=== PATIENT | male | born 1950 | race American Indian/Alaskan Native ===

== ENCOUNTER 2017-05-19 15:40 | Emergency (ER) | payer MEDICARE, OTHER ==
[2017-05-19] MEDS ORDERED: Sodium Chloride 0.9% 10 ML Syringe FLUSH PRN (15:45)
[2017-05-19 15:55] VITALS: BP 146/58
[2017-05-19 16:17] LABS: CHLORIDE,CL 99 mmol/L (101-111); SODIUM,NA 137 mmol/L (135-145)
--- NOTE | 2017-05-19 16:47 | EDM.PDOC ---
Scribed by Georgette Gonsales 05/19/17 [id number] for Rupert Caballero MD ED HPI GENERAL MEDICAL PROBLEM - General Chief Complaint: Neuro Symptoms/Deficits Stated Complaint: BY AMBULANCE Time Seen by Provider: 05/19/17 15:40 Source of Information: Reports: Patient, EMS, Family, Old Records, RN, RN Notes Reviewed History Limitations: Reports: No Limitations - History of Present Illness INITIAL COMMENTS - FREE TEXT/NARRATIVE: Patient arrives from home by ambulance with complaint of sudden onset of generalized weakness with lightheadedness while sitting in his recliner chair just after opening Stacey presents. Patient states he then fell asleep and was having a dream when his son woke him up. The son had called 911 because he didn't see what happened and thought his dad might have had a stroke. Patient states he has this type of thing happen often since he had a stroke 2 years ago. Onset: Today Duration: Resolved Prior to Arrival Severity: Moderate Improves with: Reports: None Worsens with: Reports: None Associated Symptoms: Reports: No Other Symptoms - Related Data Allergies Allergy/AdvReac Type Severity Reaction Status Date / Time No Known Allergies Allergy Verified 05/19/17 15:51 Home Meds: Home Meds Aspirin [Halfprin] 81 mg PO DAILY 07/02/14 [History] Hydrochlorothiazide/Lisinopril [Lisinopril/HCTZ 20-12.5 MG] 1 tab PO DAILY 07/02 [History] Clopidogrel Bisulfate [Clopidogrel] 75 mg PO DAILY 05/19/17 [History] amLODIPine [Norvasc] 10 mg PO DAILY 05/19/17 [History] atorvaSTATin [Lipitor] 40 mg PO DAILY 05/19/17 [History] Past Medical History HEENT History: Reports: Retinal Detachment Cardiovascular History: Reports: None Respiratory History: Reports: None Gastrointestinal History: Reports: None Genitourinary History: Reports: None Musculoskeletal History: Reports: None Neurological History: Reports: CVA Psychiatric History: Reports: None Endocrine/Metabolic History: Reports: None Hematologic History: Reports: None Immunologic History: Reports: None Oncologic (Cancer) History: Reports: None Dermatologic History: Reports: None - Past Surgical History HEENT Surgical History: Reports: Retinal Other HEENT Surgeries/Procedures: surgery about 10/10/15 Respiratory Surgical History: Reports: None Male Surgical History: Reports: None Social & Family History - Tobacco Use Smoking Status *Q: Former Smoker Years of Tobacco use: 40 Used Tobacco, but Quit: Yes Month Tobacco Last Used: 3 Second Hand Smoke Exposure: Yes - Alcohol Use Days Per Week of Alcohol Use: 4 Number of Drinks Per Day: 4 Total Drinks Per Week: 16 - Recreational Drug Use Recreational Drug Use: No - Living Situation & Occupation Living situation: Reports: Occupation: Other ED ROS GENERAL - Review of Systems Review Of Systems: ROS reveals no pertinent complaints other than HPI. ED EXAM, NEURO - Physical Exam Exam: See Below Exam Limited By: No Limitations General Appearance: Alert, WD/WN, No Apparent Distress Eye Exam: Bilateral Eye: Normal Inspection Ears: Normal External Exam, Normal Canal, Hearing Grossly Normal, Normal TMs Nose: Normal Inspection, Normal Mucosa, No Blood Throat/Mouth: Normal Inspection, Normal Lips, Normal Teeth, Normal Gums, Normal Oropharynx, Normal Voice, No Airway Compromise Head Exam: Atraumatic, Normocephalic Neck: Normal Inspection, Supple, Non-Tender, Full Range of Motion Respiratory/Chest: No Respiratory Distress, Lungs Clear, Normal Breath Sounds, No Accessory Muscle Use, Chest Non-Tender Cardiovascular: Normal Peripheral Pulses, Regular Rate, Rhythm, No Edema, No Gallop, No JVD, No Murmur, No Rub GI/Abdominal: Normal Bowel Sounds, Soft, Non-Tender, No Organomegaly, No Distention, No Abnormal Bruit, No Mass (Male) Exam: Deferred Rectal (Males) Exam: Deferred Neurological: Alert, Normal Mood/Affect, Normal Dorsiflexion, CN II-XII Intact, Normal Plantar Flexion, Normal Gait, Normal Reflexes, No Motor/Sensory Deficits , Oriented x 3 Back Exam: Normal Inspection, Full Range of Motion, NT Extremities: Normal Inspection, Normal Range of Motion, Non-Tender, No Pedal Edema, Normal Capillary Refill Psychiatric: Normal Affect, Normal Mood Skin Exam: Warm, Dry, Intact, Normal Color, No Rash EKG INTERPRETATION EKG Date: 05/19/17 Time: 15:43 Rhythm: Other (sinus rhythm) Rate (Beats/Min): 62 [place]: Normal P-Wave: Present QRS: LBBB (incomplete) ST-T: Normal QT: Normal Course - Vital Signs Last Recorded V/S: Last Vital Signs Temp 35.7 C 05/19/17 15:57 Pulse 70 05/19/17 15:57 Resp 20 05/19/17 15:57 BP 146/58 H 05/19/17 15:57 Pulse Ox 98 05/19/17 15:57 - Orders/Labs/Meds Orders: Active Orders 24 hr Category Date Time Status Blood Glucose Check, Bedside [RC] ONETIME Care 05/19/17 15:46 Active EKG 12 Lead [EKG Documentation Completion] [RC] STAT Care 05/19/17 15:45 Active Peripheral IV Care [RC] . DIRECTED Care 05/19/17 15:46 Active Chest 1V Frontal [CR] Stat Exams 05/19/17 15:45 Taken Head wo Cont [CT] Stat Exams 05/19/17 15:43 Taken DRUG SCREEN URINE BIORAD [URCHEM] Stat Lab 05/19/17 15:46 Uncollected UA W/MICROSCOPIC [URIN] Stat Lab 05/19/17 15:46 Uncollected Sodium Chloride 0.9% [Saline Flush] Med 05/19/17 15:45 Active 10 ml FLUSH ASDIRECTED PRN Peripheral IV Insertion Adult [OM.PC] Stat Oth 05/19/17 15:45 Ordered Medication Orders Sodium Chloride (Saline Flush) 10 ml FLUSH ASDIRECTED PRN PRN Reason: Keep Vein Open Last Admin: 05/19/17 15:51 Dose: 10 ml Labs: Laboratory Tests 05/19/17 05/19/17 05/19/17 Range/Units 15:51 15:51 15:51 WBC 9.2 (5.0-10.0) 10^3/uL RBC 4.31 L (4.6-6.2) 10^6/uL Hgb 13.0 L (14.0-18.0) g/dL Hct 38.5 L (40.0-54.0) % MCV 89.3 (80-100) fL MCH 30.2 (27.0-34.0) pg MCHC 33.8 (33.0-35.0) g/dL Plt Count 247 (150-450) 10^3/uL Neut % (Auto) 37.4 L (42.2-75.2) % Lymph % (Auto) 51.6 H (20.5-50.1) % Pope % (Auto) 7.2 (2-8) % Eos % (Auto) 3.4 H (1.0-3.0) % Baso % (Auto) 0.4 (0.0-1.0) % PT 10.1 (9.0-12.0) SEC INR 1.0 (0.9-1.2) APTT 21.0 L (22.0-34.0) SEC Sodium 137 (135-145) mmol/L Potassium 3.1 L (3.6-5.0) mmol/L Chloride 99 L (101-111) mmol/L Carbon Dioxide 25.0 (21.0-31.0) mmol/L Anion Gap 16.1 BUN 20 H (7-18) mg/dL Creatinine 1.0 (0.6-1.3) mg/dL Est Cr Clr Drug Dosing 77.39 mL/min Estimated GFR (MDRD) > 60 BUN/Creatinine Ratio 20.00 Glucose 171 H (74-105) mg/dL POC Glucose (70-105) mg/dl Calcium 9.5 (8.4-10.2) mg/dl Total Bilirubin 0.6 (0.2-1.0) mg/dL AST 28 (10-42) IU/L ALT 25 (10-60) IU/L Alkaline Phosphatase 47 (42-121) IU/L Troponin I < 0.02 (0.00-0.02) ng/ml Total Protein 7.2 (6.7-8.2) g/dl Albumin 4.1 (3.2-5.5) g/dl Globulin 3.1 Albumin/Globulin Ratio 1.32 Ethyl Alcohol < 5 mg/dL //17 Range/Units 16:17 WBC (5.0-10.0) 10^3/uL RBC (4.6-6.2) 10^6/uL Hgb (14.0-18.0) g/dL Hct (40.0-54.0) % MCV (80-100) fL MCH (27.0-34.0) pg MCHC (33.0-35.0) g/dL Plt Count (150-450) 10^3/uL Neut % (Auto) (42.2-75.2) % Lymph % (Auto) (20.5-50.1) % Pope % (Auto) (2-8) % Eos % (Auto) (1.0-3.0) % Baso % (Auto) (0.0-1.0) % PT (9.0-12.0) SEC INR (0.9-1.2) APTT (22.0-34.0) SEC Sodium (135-145) mmol/L Potassium (3.6-5.0) mmol/L Chloride (101-111) mmol/L Carbon Dioxide (21.0-31.0) mmol/L Anion Gap BUN (7-18) mg/dL Creatinine (0.6-1.3) mg/dL Est Cr Clr Drug Dosing mL/min Estimated GFR (MDRD) BUN/Creatinine Ratio Glucose (74-105) mg/dL POC Glucose 152 H (70-105) mg/dl Calcium (8.4-10.2) mg/dl Total Bilirubin (0.2-1.0) mg/dL AST (10-42) IU/L ALT (10-60) IU/L Alkaline Phosphatase (42-121) IU/L Troponin I (0.00-0.02) ng/ml Total Protein (6.7-8.2) g/dl Albumin (3.2-5.5) g/dl Globulin Albumin/Globulin Ratio Ethyl Alcohol mg/dL Meds: Medications Generic Name Dose Route Start Last Admin Trade Name Freq PRN Reason Stop Dose Admin Sodium Chloride 10 ml 05/19/17 15:45 05/19/17 15:51 Saline Flush FLUSH 10 ml ASDIRECTED PRN Administration Keep Vein Open - Radiology Interpretation Free Text/Narrative:: CT head: No acute intracranial process. See rad report. Chest x-ray:No active disease of the chest. See rad report. Departure - Departure Time of Disposition: 16:31 Disposition: Home, Self-Care 01 Condition: Good Clinical Impression: Normal exam - Discharge Information Instructions: Medical Screening Exam Forms: ED Department Discharge Additional Instructions: Follow up in clinic for recheck in the next 1 week. Return to ER if any new symptoms develops or if worse at anytime. - My Orders Last 24 Hours: My Active Orders 05/19/17 15:43 Head wo Cont [CT] Stat 05/19/17 15:45 EKG 12 Lead [EKG Documentation Completion] [RC] STAT Chest 1V Frontal [CR] Stat Sodium Chloride 0.9% [Saline Flush] 10 ml FLUSH ASDIRECTED PRN Peripheral IV Insertion Adult [OM.PC] Stat 05/19/17 15:46 Blood Glucose Check, Bedside [RC] ONETIME Peripheral IV Care [RC] . DIRECTED DRUG SCREEN URINE BIORAD [URCHEM] Stat UA W/MICROSCOPIC [URIN] Stat - Assessment/Plan Last 24 Hours: My Active Orders 05/19/17 15:43 Head wo Cont [CT] Stat 05/19/17 15:45 EKG 12 Lead [EKG Documentation Completion] [RC] STAT Chest 1V Frontal [CR] Stat Sodium Chloride 0.9% [Saline Flush] 10 ml FLUSH ASDIRECTED PRN Peripheral IV Insertion Adult [OM.PC] Stat 05/19/17 15:46 Blood Glucose Check, Bedside [RC] ONETIME Peripheral IV Care [RC] . DIRECTED DRUG SCREEN URINE BIORAD [URCHEM] Stat UA W/MICROSCOPIC [URIN] Stat I have read and agree with the documentation that has been completed regarding this visit. By signing this record, I attest that the documentation was completed in my physical presence and is an accurate record of the encounter.
--- NOTE | 2017-05-26 18:31 | EKG ---
05/19/2017 - NIA JIMENEZ - This 12-lead EKG shows a normal sinus rhythm with a ventricular rate of 62. There is an incomplete left bundle-branch block. No other comments are made. [facility] /[id number] MTDD
== END 2017-05-19 16:20 | disposition home or self-care (01) ==
LOC: DL.ED 15:40
DX: R53.1 Weakness (principal); R42 Dizziness and giddiness; Z79.82 Long term (current) use of aspirin; Z79.899 Other long term (current) drug therapy; Z87.891 Personal history of nicotine dependence; Z86.73 Personal history of transient ischemic attack (TIA), and cerebral infarction without residual deficits
CPT/HCPCS: 36415; 70450; 71010; 80053; 82962; 84484; 85025; 85610; 85730; 93005; 93010; 99285; G0480; J7050; 99283

== ENCOUNTER 2017-09-22 05:56 | Day surgery (SDC) | payer MEDICARE, OTHER ==
[2017-09-22] MEDS ORDERED: fentaNYL 100 MCG/2 ML SDV IV ONE ×3 (05:57→07:02)
[2017-09-22] MEDS ORDERED: Midazolam 1 MG/ML 2 ML SDV IV ONE ×3 (05:57→07:03)
[2017-09-22] MEDS ORDERED: Sodium Chloride 0.9% 10 ML Syringe FLUSH PRN (06:00)
[2017-09-22] MEDS ORDERED: Dextrose 5%-0.45% NaCl 1,000 ML IV SCH (06:00)
[2017-09-22] MEDS ORDERED: Midazolam 1 MG/ML 2 ML SDV ONE (06:14)
[2017-09-22] MEDS ORDERED: fentaNYL 100 MCG/2 ML SDV ONE (06:15)
[2017-09-22 09:16] VITALS: BP 112/58
--- NOTE | 2017-09-22 13:44 | OR ---
DATE: 09/22/2017 PROCEDURE: Esophagogastroduodenoscopy, NBI and magnification views, and multiple pinch biopsies. INSTRUMENT USED: GIF-H180 Olympus video panendoscope. PREMEDICATIONS: No oral topical anesthesia used. Fentanyl 100 mcg intravenous, Versed 2 mg intravenous. The procedure was done under pulse oximetry, BP recording, and monitoring coordinator. INDICATION: The patient with abdominal pain, and FIT positive stools. Esophagogastroduodenoscopy is performed for detection of any active erosive lesions, malignancy also under consideration, H. pylori status to be determined, endoscopic hemostasis therapy if needed. DESCRIPTION OF PROCEDURE: The scope was passed with ease. Adequate visualization of the esophagus was made from proximal to distal areas. No upper esophageal lesions identified. No distal esophageal stricture. No uphill or downhill esophageal varices. No Deloris-Rodriguez tear. No evidence of erosive esophagitis by [place] criteria. No esophageal polyp or tumor mass identified. Z-line was seen at around 40 cm distal to the oral verge, configuration consistent with Grade 1 by ZAP classification. No proximal gastric varices noted. Gastric fundus examination by retroflex ion showed no polypoid lesions. No gastric ulcer, malignant mass, or vascular ectasia identified. Scattered gastric antral erosions were noted without bleeding from them. Duodenal bulb showed no ulcer. Visualized second part of the duodenum, showed prominent sessile benign-appearing folds and also close by 5-mm sized submucosal prominent fold. NBI views and magnification views were obtained, photographs were taken, multiple pinch biopsies were obtained and sent for histopathology. Multiple pinch biopsies were also taken from the gastric antrum and proximal body and sent for PyloriTek test for H. pylori and histopathology. No bleeding was noted from any of the visualized areas at the completion of examination. Photographs were taken of the second part of the duodenum, duodenal bulb, gastric antrum, fundus, and distal esophagus. IMPRESSION: Gastric antral erosions. The patient tolerated the procedure well. [facility] /[id number]
== END 2017-09-22 09:20 | disposition home or self-care (01) ==
LOC: DL.ENDO 05:56
PROVIDERS: ATTEND Internal Medicine Gastroenterology
DX: D13.2 Benign neoplasm of duodenum (principal); K25.9 Gastric ulcer, unspecified as acute or chronic, without hemorrhage or perforation; K29.80 Duodenitis without bleeding; K31.89 Other diseases of stomach and duodenum; I10 Essential (primary) hypertension; E78.5 Hyperlipidemia, unspecified; Z79.82 Long term (current) use of aspirin
CPT/HCPCS: 43239; 87077; 88305; J2250; J3010; J7042

== ENCOUNTER 2017-09-24 05:23 | Day surgery (SDC) | payer MEDICARE, OTHER ==
[2017-09-24] MEDS ORDERED: Midazolam 1 MG/ML 2 ML SDV IV ONE ×8 (05:24→06:57)
[2017-09-24] MEDS ORDERED: fentaNYL 100 MCG/2 ML SDV IV ONE ×4 (05:24→06:37)
[2017-09-24] MEDS ORDERED: Dextrose 5%-0.45% NaCl 1,000 ML IV SCH (06:00)
[2017-09-24] MEDS ORDERED: Midazolam 1 MG/ML 2 ML SDV ONE (06:15)
[2017-09-24] MEDS ORDERED: fentaNYL 100 MCG/2 ML SDV ONE (06:15)
--- NOTE | 2017-09-24 09:30 | OR ---
DATE: 09/24/2017 PROCEDURES: Total colonoscopy, narrow-band imaging, and multiple snare polypectomies. INSTRUMENT USED: CF-H180 [place] Olympus video colonoscope. PREMEDICATIONS: Fentanyl 100 mcg intravenous, Versed 4 mg intravenous. Nasal O2 cannula. The procedure was done under pulse oximetry, BP recording, and radiographer cardiac catheterization. INDICATION: The patient with FIT positive stools. Colonoscopic examination is done for detection of any polypoid lesions and removal, endoscopic hemostasis therapy if needed. DESCRIPTION OF PROCEDURE: Initial rectal exam was unremarkable. Rigid anoscopy was normal. The colonoscope was passed with ease. In the mid rectum, 5-mm sized benign- appearing polyp was noted. Photograph was taken. Cold snare polypectomy was done. The tissue was retrieved and sent for histopathology. In the distal descending colon, another 1-cm sized pedunculated polyp was noted. NBI views were obtained. Photographs were taken. Snare polypectomy was done. The polyp was retrieved and sent for histopathology. Polypectomy side was felt to be cleaned. In the distal descending colon, another three polyps, 3 to 5 mm sized, noted. Cold snare polypectomy was done. The tissues were retrieved and sent for histopathology. A few scattered diverticula were noted in the distal left colon. The scope was passed with ease up to the ileocecal area. Photographs were taken of the normal-appearing cecum identified by double-bulged ileocecal folds. No bleeding was noted from any of the visualized areas at the commencement of the examination. No stricture. No vascular ectasia. No large isolated ulcerations seen. No evidence of diffuse inflammatory bowel disease in the form of friability, contact bleeding, or ulcerations. Probing the proximal sides of folds and flexures, using adequate distention and clearing up the stool material, withdrawal of the scope was made. [id number] time over 6 minutes. No bleeding was noted from any of the visualized areas at the completion of examination. IMPRESSION: 1. Diverticulosis. 2. Multiple colonic polyps. The patient tolerated the procedure well. [facility] /[id number]
[2017-09-24 10:03] VITALS: BP 115/59
== END 2017-09-24 09:17 | disposition home or self-care (01) ==
LOC: DL.ENDO 05:23
PROVIDERS: ATTEND Internal Medicine Gastroenterology
DX: D12.4 Benign neoplasm of descending colon (principal); D12.8 Benign neoplasm of rectum; K57.30 Diverticulosis of large intestine without perforation or abscess without bleeding; E78.5 Hyperlipidemia, unspecified; I10 Essential (primary) hypertension; Z79.82 Long term (current) use of aspirin; Z90.89 Acquired absence of other organs; Z98.52 Vasectomy status; Z98.890 Other specified postprocedural states
CPT/HCPCS: 45385; J2250; J3010; J7042; 88305

== ENCOUNTER 2018-06-17 23:28 | Emergency (ER) | payer MEDICARE, OTHER ==
[2018-06-17] MEDS ORDERED: Sodium Chloride 0.9% 10 ML Syringe FLUSH PRN (23:40)
[2018-06-17] MEDS ORDERED: Pantoprazole 40 MG Vial IVPUSH ONE (23:41)
[2018-06-17] MEDS ORDERED: Pantoprazole 40 MG in Sodium Chloride 0.9% 100 ML IV SCH (23:43)
[2018-06-17] MEDS ORDERED: Lactated Ringers 1,000 ML IV ONE (23:48)
--- NOTE | 2018-06-17 23:55 | EDM.PDOC ---
ED HPI GENERAL MEDICAL PROBLEM - General Chief Complaint: Gastrointestinal Problem Stated Complaint: AMBULANCE-BLEEDING FROM GI TUBE? Time Seen by Provider: 06/17/18 23:28 Source of Information: Reports: Patient, EMS, EMS Notes Reviewed, RN, RN Notes Reviewed History Limitations: Reports: No Limitations - History of Present Illness INITIAL COMMENTS - FREE TEXT/NARRATIVE: Pt to ER per [facility] with c/o black bloody stools. He states he was at [place] last week and had an endoscopy and colonoscopy. He states he had a polyp removed from the duodenum on Friday06/12/18. He came home Friday06/13/18. He states he has had some black and bloody stools on and off since the procedure, but they began getting more firm and brown. Yesterday began again with the black stools having about 3 per day. He states today he had a very large bloody stool and has been very weak and dizzy. Patient denies any vomiting or stomach pain. Onset: Gradual Onset Date: 06/12/18 - Related Data Allergies Allergy/AdvReac Type Severity Reaction Status Date / Time No Known Allergies Allergy Verified 06/17/18 23:39 Home Meds: Home Meds Aspirin [Halfprin] 81 mg PO DAILY 07/02/14 [History] Clopidogrel Bisulfate [Clopidogrel] 75 mg PO DAILY 05/19/17 [History] amLODIPine [Norvasc] 10 mg PO DAILY 05/19/17 [History] atorvaSTATin [Lipitor] 40 mg PO DAILY 05/19/17 [History] Hoyt-3 Fatty Acids/Fish Oil [Cvs Fish Oil 1,000 mg Softgel] 2,000 mg PO DAILY 09/17/17 [History] Eye Promise 1 tab PO DAILY 09/18/17 [History] Lisinopril/Hydrochlorothiazide [Lisinopril-Hctz 20-12.5 mg Tab] 1 tab PO BID [History] Pantoprazole Sodium [Protonix] 40 mg PO DAILY 04/08/18 [History] Past Medical History HEENT History: Reports: Retinal Detachment Other HEENT History: LEFT EYE RETINAL DETACHEMENT x2 Cardiovascular History: Reports: High Cholesterol, Hypertension, Other (See Below) Other Cardiovascular History: CAROTID STENOSIS, RIGHT Respiratory History: Reports: None Gastrointestinal History: Reports: GERD Genitourinary History: Reports: None Musculoskeletal History: Reports: Fracture Other Musculoskeletal History: Left Foot crushed on railroad Neurological History: Reports: CVA Psychiatric History: Reports: None Endocrine/Metabolic History: Reports: None Hematologic History: Reports: None Immunologic History: Reports: None Oncologic (Cancer) History: Reports: None Dermatologic History: Reports: None - Infectious Disease History Infectious Disease History: Reports: Measles - Past Surgical History Head Surgeries/Procedures: Reports: None HEENT Surgical History: Reports: Detached Retina, Tonsillectomy Other HEENT Surgeries/Procedures: LEFT EYE Cardiovascular Surgical History: Reports: Carotid Endarterectomy Other Cardiovascular Surgeries/Procedures: RIGHT CAROTID ENDARTERECTOMY Respiratory Surgical History: Reports: None GI Surgical History: Reports: Colonoscopy, Hernia Repair/Other Male Surgical History: Reports: Vasectomy Endocrine Surgical History: Reports: None Neurological Surgical History: Reports: None Musculoskeletal Surgical History: Reports: None Oncologic Surgical History: Reports: None Dermatological Surgical History: Reports: None Social & Family History - Family History Family Medical History: Noncontributory - Tobacco Use Smoking Status *Q: Former Smoker Used Tobacco, but Quit: Yes Month/Year Tobacco Last Used: 2012 - Caffeine Use Caffeine Use: Reports: Coffee Caffeine Use Comment: 1/2 pot daily - Recreational Drug Use Recreational Drug Use: No - Living Situation & Occupation Living situation: Reports: Occupation: Other ED ROS GENERAL - Review of Systems Review Of Systems: ROS reveals no pertinent complaints other than HPI. ED EXAM, GI/ABD - Physical Exam Exam: See Below Exam Limited By: No Limitations General Appearance: Alert, WD/WN, No Apparent Distress Eyes: Bilateral: Normal Appearance, EOMI Ears: Normal External Exam, Hearing Grossly Normal Nose: Normal Inspection Throat/Mouth: Normal Inspection, Normal Voice, No Airway Compromise Head: Atraumatic, Normocephalic Neck: Normal Inspection, Supple, Non-Tender, Full Range of Motion Respiratory/Chest: No Respiratory Distress, Lungs Clear, Normal Breath Sounds, No Accessory Muscle Use, Chest Non-Tender Cardiovascular: Normal Peripheral Pulses, Regular Rate, Rhythm, No Edema, No Gallop, No JVD, No Murmur, No Rub GI/Abdominal Exam: Normal Bowel Sounds, Soft, Non-Tender, No Organomegaly, No Abnormal Bruit, No Mass, Pelvis Stable, Distended (Male) Exam: Deferred Rectal (Males) Exam: Black Stool, Bloody Stool, Heme + Stool Back Exam: Normal Inspection, Full Range of Motion, NT Extremities: Normal Inspection, Normal Range of Motion, Non-Tender, Normal Capillary Refill, No Pedal Edema Neurological: Alert, Oriented, CN II-XII Intact, Normal Cognition, Normal Gait, Normal Reflexes, No Motor/Sensory Deficits Psychiatric: Normal Affect, Normal Mood Skin Exam: Warm, Dry, Intact, No Rash, Pallor Lymphatic: No Adenopathy EKG INTERPRETATION EKG Date: 06/17/18 Time: 23:46 Rhythm: NSR Rate (Beats/Min): 79 [place]: Normal P-Wave: Present QRS: Normal ST-T: Normal QT: Normal Comparison: No Change Course - Vital Signs Last Recorded V/S: Last Vital Signs Temp 98.2 F 06/18/18 01:17 Pulse 88 06/18/18 01:17 Resp 18 06/18/18 01:17 BP 100/51 L 06/18/18 01:17 Pulse Ox 93 L 06/17/18 23:28 - Orders/Labs/Meds Orders: Active Orders 24 hr Category Date Time Status EKG Documentation Completion [RC] STAT Care 06/17/18 23:38 Active Peripheral IV Care [RC] . DIRECTED Care 06/17/18 23:40 Active FRESH FROZEN PLASMA [BBK] Stat Lab 06/18/18 02:36 Results RED BLOOD CELLS LP [BBK] Stat Lab 06/17/18 23:35 Results TYPE AND SCREEN [BBK] Stat Lab 06/17/18 23:35 Results Peripheral IV Insertion Adult [OM.PC] Stat Oth 06/17/18 23:37 Ordered Transfuse RBC [Transfuse Red Blood Cells] [COMM] Stat Oth 06/17/18 23:40 Ordered Labs: Laboratory Tests 06/17/18 06/17/18 06/17/18 Range/Units 23:35 23:35 23:35 WBC 14.6 H (5.0-10.0) 10^3/uL RBC 1.82 L (4.6-6.2) 10^6/uL Hgb 5.5 L* D (14.0-18.0) g/dL Hct 17.0 L* (40.0-54.0) % MCV 93.4 D (80-100) fL MCH 30.2 (27.0-34.0) pg MCHC 32.4 L (33.0-35.0) g/dL Plt Count 219 (150-450) 10^3/uL Neut % (Auto) 65.7 (42.2-75.2) % Lymph % (Auto) 26.7 (20.5-50.1) % [place] % (Auto) 6.1 (2-8) % Eos % (Auto) 1.2 (1.0-3.0) % Baso % (Auto) 0.3 (0.0-1.0) % Add Manual Diff Yes Neutrophils % (Manual) 79 H (42-75) % Lymphocytes % (Manual) 15 L (20-50) % Monocytes % (Manual) 5 (2-8) % Eosinophils % (Manual) 1 (1-3) % PT 10.2 (9.0-12.0) SEC INR 1.0 (0.9-1.2) Sodium 132 L (135-145) mmol/L Potassium 3.3 L (3.6-5.0) mmol/L Chloride 96 L (101-111) mmol/L Carbon Dioxide 19.0 L (21.0-31.0) mmol/L Anion Gap 20.3 BUN 34 H (7-18) mg/dL Creatinine 1.2 (0.6-1.3) mg/dL Est Cr Clr Drug Dosing 63.62 mL/min Estimated GFR (MDRD) > 60 BUN/Creatinine Ratio 28.33 Glucose 206 H (74-105) mg/dL Calcium 7.8 L D (8.4-10.2) mg/dl Total Bilirubin 0.4 (0.2-1.0) mg/dL AST 26 (10-42) IU/L ALT 19 (10-60) IU/L Alkaline Phosphatase 35 L (42-121) IU/L Total Protein 5.2 L (6.7-8.2) g/dl Albumin 2.9 L (3.2-5.5) g/dl Globulin 2.3 Albumin/Globulin Ratio 1.26 Blood Type Gel Antibody Screen Crossmatch 06/17/18 06/18/18 06/18/18 Range/Units 23:35 03:33 03:33 WBC (5.0-10.0) 10^3/uL RBC (4.6-6.2) 10^6/uL Hgb 8.3 L D (14.0-18.0) g/dL Hct 24.4 L (40.0-54.0) % MCV (80-100) fL MCH (27.0-34.0) pg MCHC (33.0-35.0) g/dL Plt Count (150-450) 10^3/uL Neut % (Auto) (42.2-75.2) % Lymph % (Auto) (20.5-50.1) % [place] % (Auto) (2-8) % Eos % (Auto) (1.0-3.0) % Baso % (Auto) (0.0-1.0) % Add Manual Diff Neutrophils % (Manual) (42-75) % Lymphocytes % (Manual) (20-50) % Monocytes % (Manual) (2-8) % Eosinophils % (Manual) (1-3) % PT (9.0-12.0) SEC INR (0.9-1.2) Sodium (135-145) mmol/L Potassium (3.6-5.0) mmol/L Chloride (101-111) mmol/L Carbon Dioxide (21.0-31.0) mmol/L Anion Gap BUN (7-18) mg/dL Creatinine (0.6-1.3) mg/dL Est Cr Clr Drug Dosing mL/min Estimated GFR (MDRD) BUN/Creatinine Ratio Glucose (74-105) mg/dL Calcium 7.5 L (8.4-10.2) mg/dl Total Bilirubin (0.2-1.0) mg/dL AST (10-42) IU/L ALT (10-60) IU/L Alkaline Phosphatase (42-121) IU/L Total Protein (6.7-8.2) g/dl Albumin (3.2-5.5) g/dl Globulin Albumin/Globulin Ratio Blood Type A POSITIVE Gel Antibody Screen Negative Crossmatch See Detail Meds: Medications Discontinued Medications Generic Name Dose Route Start Last Admin Trade Name Freq PRN Reason Stop Dose Admin Calcium Gluconate 1 gm 06/18/18 03:14 06/18/18 03:19 Calcium Gluconate IVPUSH 06/18/18 03:15 1 gm ONETIME ONE Administration Pantoprazole Sodium 40 mg/ 100 mls @ 20 mls/hr 06/17/18 23:43 06/18/18 00:11 Sodium Chloride IV 20 mls/hr .CONTINUOS MARCO Administration Lactated Ringer's 1,000 mls @ 999 mls/hr 06/17/18 23:48 06/17/18 23:54 Ringers, Lactated IV 06/18/18 00:48 999 mls/hr .BOLUS ONE Administration Sodium Chloride 1,000 mls @ 999 mls/hr 06/18/18 00:23 06/18/18 00:25 Normal Saline IV 06/18/18 01:23 999 mls/hr .BOLUS ONE Administration Sodium Chloride 1,000 mls @ 999 mls/hr 06/18/18 02:21 06/18/18 02:22 Normal Saline IV 06/18/18 03:21 999 mls/hr .BOLUS ONE Administration Pantoprazole Sodium 40 mg/ 100 mls @ 20 mls/hr 06/18/18 03:00 06/18/18 02:57 Sodium Chloride IV 20 mls/hr .CONTINUOS MARCO Administration Lactated Ringer's 1,000 mls @ 999 mls/hr 06/18/18 02:48 06/18/18 02:53 Ringers, Lactated IV 06/18/18 03:48 999 mls/hr .BOLUS ONE Administration Pantoprazole Sodium 80 mg 06/17/18 23:41 06/17/18 23:51 Protonix Iv IVPUSH 06/17/18 23:42 80 mg .BOLUS ONE Administration Sodium Chloride 10 ml 06/17/18 23:40 06/18/18 00:12 Saline Flush FLUSH 10 ml ASDIRECTED PRN Administration Keep Vein Open - Re-Assessments/Exams Free Text/Narrative Re-Assessment/Exam: 06/18/18 04:26 Discussed patient case with Dr. Bal who agreed to accept the patient for transfer. Departure - Departure Time of Disposition: 03:50 Disposition: DC/Tfer to Acute Hospital 02 Condition: Poor Clinical Impression: GI bleed Qualifiers: GI bleed type/associated pathology: melena Qualified Code(s): K92.1 - Melena - Discharge Information *PRESCRIPTION DRUG MONITORING PROGRAM REVIEWED*: No *COPY OF PRESCRIPTION DRUG MONITORING REPORT IN PATIENT SEBASTIAN: No Referrals: Isra Han MD [Primary Care Provider] - Forms: ED Department Discharge, Interfacility Transfer EMTALA - My Orders Last 24 Hours: My Active Orders 06/17/18 23:35 RED BLOOD CELLS LP [BBK] Stat TYPE AND SCREEN [BBK] Stat 06/17/18 23:37 Peripheral IV Insertion Adult [OM.PC] Stat 06/17/18 23:38 EKG Documentation Completion [RC] STAT 06/17/18 23:40 Peripheral IV Care [RC] . DIRECTED Transfuse RBC [Transfuse Red Blood Cells] [COMM] Stat 06/18/18 02:36 FRESH FROZEN PLASMA [BBK] Stat - Assessment/Plan Last 24 Hours: My Active Orders 06/17/18 23:35 RED BLOOD CELLS LP [BBK] Stat TYPE AND SCREEN [BBK] Stat 06/17/18 23:37 Peripheral IV Insertion Adult [OM.PC] Stat 06/17/18 23:38 EKG Documentation Completion [RC] STAT 06/17/18 23:40 Peripheral IV Care [RC] . DIRECTED Transfuse RBC [Transfuse Red Blood Cells] [COMM] Stat 06/18/18 02:36 FRESH FROZEN PLASMA [BBK] Stat
[2018-06-18 00:02] LABS: ANION GAP 20.3; CHLORIDE,CL 96 mmol/L (101-111); SODIUM,NA 132 mmol/L (135-145)
[2018-06-18] MEDS ORDERED: Sodium Chloride 0.9% 1,000 ML IV ONE ×2 (00:23→02:21)
[2018-06-18 01:18] VITALS: BP 100/51
[2018-06-18] MEDS ORDERED: Lactated Ringers 1,000 ML IV ONE (02:48)
[2018-06-18] MEDS ORDERED: Pantoprazole 40 MG in Sodium Chloride 0.9% 100 ML IV SCH (03:00)
[2018-06-18] MEDS ORDERED: Calcium Gluconate 10% 1 GM/10 ML SDV IVPUSH ONE (03:14)
== END 2018-06-18 03:50 ==
LOC: DL.ED 23:28
DX: K92.1 Melena (principal); E78.00 Pure hypercholesterolemia, unspecified; Z86.73 Personal history of transient ischemic attack (TIA), and cerebral infarction without residual deficits; Z87.891 Personal history of nicotine dependence; Z79.82 Long term (current) use of aspirin; Z79.899 Other long term (current) drug therapy
CPT/HCPCS: 36415; 36430; 80053; 82272; 82310; 85014; 85018; 85025; 85610; 86850; 86900; 86901; 86920; 86922; 93005; 96361; 96365; 96366; 96375; 99285; C9113; J0610; J7030; J7050; J7120; P9016

== ENCOUNTER 2018-06-24 10:33 | Emergency (ER) | payer MEDICARE, OTHER ==
[2018-06-24 10:41] VITALS: BP 107/56
--- NOTE | 2018-06-24 11:02 | EDM.PDOC ---
ED HPI GENERAL MEDICAL PROBLEM - General Stated Complaint: PASSED OUT Time Seen by Provider: 06/24/18 10:40 Source of Information: Reports: Patient, Provider History Limitations: Reports: No Limitations - History of Present Illness INITIAL COMMENTS - FREE TEXT/NARRATIVE: This 68 yo male patient was sent to the ED from Dr. Dodge's office due to the patient passing out while getting a follow-up examination in her office. Dr. Dodge reports she could not detect a blood pressure. The patient was in [facility] 1 week ago for bleeding in his Duodenum (cauderized). Upon arrival in the ED, the patient reports he s feeling fine at this time. The patient reports that all of this happened while he was taking deep breaths while being assessed by Dr. Dodge. The patient denies any current chest pain or dizziness. The patient reports that he had some changes in his vision yesterday (the patient describes it as he was seeing little lines in both eyes) . The patient reports he symptoms went away when he elevated his feet. The patient reports some vision changes at this time. The patient reports his hemoglobin was 7.6 when he was discharged last week. Onset: Today, Sudden Duration: Resolved Prior to Arrival Location: Reports: Generalized Quality: Reports: Other Severity: Moderate Improves with: Reports: None Worsens with: Reports: None Context: Reports: Other Associated Symptoms: Reports: Syncope - Related Data Allergies Allergy/AdvReac Type Severity Reaction Status Date / Time No Known Allergies Allergy Verified 06/24/18 10:52 Home Meds: Home Meds Clopidogrel Bisulfate [Clopidogrel] 75 mg PO DAILY 05/19/17 [History] amLODIPine [Norvasc] 10 mg PO DAILY 05/19/17 [History] atorvaSTATin [Lipitor] 40 mg PO BEDTIME 05/19/17 [History] Eye Promise 1 tab PO DAILY 09/18/17 [History] Lisinopril/Hydrochlorothiazide [Lisinopril-Hctz 20-12.5 mg Tab] 1 tab PO BID [History] Pantoprazole Sodium [Protonix] 40 mg PO BID 04/08/18 [History] Sildenafil Citrate [Sildenafil] 50 mg PO DAILY PRN 06/24/18 [History] Past Medical History HEENT History: Reports: Retinal Detachment Other HEENT History: LEFT EYE RETINAL DETACHEMENT x2 Cardiovascular History: Reports: High Cholesterol, Hypertension, Other (See Below) Other Cardiovascular History: CAROTID STENOSIS, RIGHT Respiratory History: Reports: None Gastrointestinal History: Reports: GERD Genitourinary History: Reports: None Musculoskeletal History: Reports: Fracture Other Musculoskeletal History: Left Foot crushed on railroad Neurological History: Reports: CVA Psychiatric History: Reports: None Endocrine/Metabolic History: Reports: None Hematologic History: Reports: None Immunologic History: Reports: None Oncologic (Cancer) History: Reports: None Dermatologic History: Reports: None - Infectious Disease History Infectious Disease History: Reports: Measles - Past Surgical History Head Surgeries/Procedures: Reports: None HEENT Surgical History: Reports: Detached Retina, Tonsillectomy Other HEENT Surgeries/Procedures: LEFT EYE Cardiovascular Surgical History: Reports: Carotid Endarterectomy Other Cardiovascular Surgeries/Procedures: RIGHT CAROTID ENDARTERECTOMY Respiratory Surgical History: Reports: None GI Surgical History: Reports: Colonoscopy, Hernia Repair/Other Male Surgical History: Reports: Vasectomy Endocrine Surgical History: Reports: None Neurological Surgical History: Reports: None Musculoskeletal Surgical History: Reports: None Oncologic Surgical History: Reports: None Dermatological Surgical History: Reports: None Social & Family History - Family History Family Medical History: Noncontributory - Caffeine Use Caffeine Use: Reports: Coffee Caffeine Use Comment: 1/2 pot daily - Living Situation & Occupation Living situation: Reports: Occupation: Other ED ROS GENERAL - Review of Systems Review Of Systems: ROS reveals no pertinent complaints other than HPI. ED EXAM, GENERAL - Physical Exam Exam: See Below Exam Limited By: No Limitations General Appearance: Alert, WD/WN, No Apparent Distress Eye Exam: Bilateral Eye: EOMI, Normal Inspection, PERRL Ears: Normal External Exam, Normal Canal, Hearing Grossly Normal, Normal TMs Nose: Normal Inspection, Normal Mucosa, No Blood Throat/Mouth: Normal Inspection, Normal Lips, Normal Teeth, Normal Gums, Normal Oropharynx, Normal Voice, No Airway Compromise Head: Atraumatic, Normocephalic Neck: Normal Inspection, Supple, Non-Tender, Full Range of Motion Respiratory/Chest: No Respiratory Distress, Lungs Clear, Normal Breath Sounds, No Accessory Muscle Use, Chest Non-Tender Cardiovascular: Normal Peripheral Pulses, Regular Rate, Rhythm, No Edema, No Gallop, No JVD, No Murmur, No Rub GI/Abdominal: Normal Bowel Sounds, Soft, Non-Tender, No Organomegaly, No Distention, No Abnormal Bruit, No Mass (Male) Exam: Deferred Rectal (Males) Exam: Deferred Back Exam: Normal Inspection, Full Range of Motion, NT Extremities: Normal Inspection, Normal Range of Motion, Non-Tender, Normal Capillary Refill, No Pedal Edema Neurological: Alert, Oriented, CN II-XII Intact, Normal Cognition, Normal Gait, Normal Reflexes, No Motor/Sensory Deficits Psychiatric: Normal Affect, Normal Mood Skin Exam: Warm, Dry, Intact, Normal Color, No Rash Lymphatic: No Adenopathy Course - Vital Signs Last Recorded V/S: Last Vital Signs Temp 35.9 C 06/24/18 10:35 Pulse 94 06/24/18 10:35 Resp 18 06/24/18 10:35 BP 107/56 L 06/24/18 10:35 Pulse Ox 100 06/24/18 10:35 Orthostatic Blood Pressure [ 95/55 Standing] Orthostatic Blood Pressure [ 103/66 Sitting] Orthostatic Blood Pressure [ 106/50 Supine] - Orders/Labs/Meds Orders: Active Orders 24 hr Category Date Time Status EKG Documentation Completion [RC] URGENT Care 06/24/18 10:35 Active UA RFX VARGAS AND CULT IF INDIC [URIN] Urgent Lab 06/24/18 10:35 Ordered Labs: Laboratory Tests 06/24/18 06/24/18 06/24/18 Range/Units 10:44 10:44 10:44 WBC 8.5 (5.0-10.0) 10^3/uL RBC 3.21 L (4.6-6.2) 10^6/uL Hgb 9.6 L (14.0-18.0) g/dL Hct 30.3 L (40.0-54.0) % MCV 94.4 (80-100) fL MCH 29.9 (27.0-34.0) pg MCHC 31.7 L (33.0-35.0) g/dL Plt Count 387 D (150-450) 10^3/uL Neut % (Auto) 49.3 (42.2-75.2) % Lymph % (Auto) 35.8 (20.5-50.1) % [place] % (Auto) 9.6 H (2-8) % Eos % (Auto) 4.9 H (1.0-3.0) % Baso % (Auto) 0.4 (0.0-1.0) % PT 9.3 (9.0-12.0) SEC INR 0.9 (0.9-1.2) Sodium 136 (135-145) mmol/L Potassium 3.8 (3.6-5.0) mmol/L Chloride 99 L (101-111) mmol/L Carbon Dioxide 26.0 (21.0-31.0) mmol/L Anion Gap 14.8 BUN 16 (7-18) mg/dL Creatinine 1.1 (0.6-1.3) mg/dL Est Cr Clr Drug Dosing 69.41 mL/min Estimated GFR (MDRD) > 60 BUN/Creatinine Ratio 14.54 Glucose 154 H (74-105) mg/dL Calcium 9.3 D (8.4-10.2) mg/dl Total Bilirubin 0.7 (0.2-1.0) mg/dL AST 28 (10-42) IU/L ALT 28 (10-60) IU/L Alkaline Phosphatase 69 (42-121) IU/L Troponin I 0.04 H* (0.00-0.02) ng/ml Total Protein 7.0 (6.7-8.2) g/dl Albumin 3.6 (3.2-5.5) g/dl Globulin 3.4 Albumin/Globulin Ratio 1.06 Departure - Departure Time of Disposition: 11:45 Disposition: DC/Tfer to [facility] 02 Reason for Transfer *Q: Other Condition: Fair Clinical Impression: Elevated troponin I level Syncope Qualifiers: Syncope type: unspecified Qualified Code(s): R55 - Syncope and collapse Forms: Interfacility Transfer EMTALA Care Plan Goals: Discussed the patient's history, examination, lab and EKG results with Dr. Perez. Dr. Perez accepted the patient for continued evaluation and further treatment at [facility] in [place]. The patient will be transported by [facility]. - My Orders Last 24 Hours: My Active Orders 06/24/18 10:35 EKG Documentation Completion [RC] URGENT UA RFX VARGAS AND CULT IF INDIC [URIN] Urgent - Assessment/Plan Last 24 Hours: My Active Orders 06/24/18 10:35 EKG Documentation Completion [RC] URGENT UA RFX VARGAS AND CULT IF INDIC [URIN] Urgent
[2018-06-24 11:11] LABS: ANION GAP 14.8; CHLORIDE,CL 99 mmol/L (101-111); SODIUM,NA 136 mmol/L (135-145)
== END 2018-06-24 12:14 ==
LOC: DL.ED 10:33
DX: R55 Syncope and collapse (principal); R79.89 Other specified abnormal findings of blood chemistry; I10 Essential (primary) hypertension; Z86.73 Personal history of transient ischemic attack (TIA), and cerebral infarction without residual deficits; Z79.899 Other long term (current) drug therapy; Z98.890 Other specified postprocedural states
CPT/HCPCS: 36415; 80053; 84484; 85025; 85610; 93005; 99285